=== PATIENT | female | born 1970 | race Caucasian/White ===

== ENCOUNTER 2017-05-17 04:21 | Emergency (ER) | payer OTHER ==
[~2017-05-17] VITALS: Ht 160 cm; Wt 89.0 kg
[~2017-05-17 04:21] MED LIST: ACID CONTROL150 MG PO; FOLIC ACID1 MG PO; MELATONIN5 M1 PO; NORCO 5/3251 TABLET PO; PRILOSEC40 MG PO; ZANTAC150 MG PO; ZOFRAN4 MG PO; ZOFRAN8 MG PO; ZOLOFT100 MG PO; ZOLOFT50 MG PO
[2017-05-17 04:25] VITALS: BP 150/95
[2017-05-17] MEDS ORDERED: FLONASE SENSIM9.9 ML BOTH NARES (04:44)
== END 2017-05-17 04:58 | disposition home or self-care (01) ==
LOC: EME 04:21
DX: J32.9 Chronic sinusitis, unspecified (principal); K21.9 Gastro-esophageal reflux disease without esophagitis
CPT/HCPCS: 99281; 99284; J1100

== ENCOUNTER 2018-03-29 08:54 | Day surgery (SDC) | payer BC ==
[~2018-03-29] VITALS: Ht 160 cm; Wt 90.7 kg
[~2018-03-29 08:54] MED LIST changes: +ALAVERT10 M1 PO; +FLONASE SENSIM9.9 ML BOTH NARES; +MAGNESIUM250 MG PO; +OMEPRAZOLE40 M1 PO; -PRILOSEC40 MG PO; +STOOL SOFTENER100 M1 PO; +VALIUM5 MG PO; +VITAMIN D33000 UNIT PO; -ZOLOFT50 MG PO; +[UNRECOGNIZED DRUG - CODE] PO
[2018-03-29 09:45] VITALS: BP 144/71
[2018-03-29] MEDS ORDERED: ENDOCET 5-3251 EACH PO (10:16)
[2018-03-29 13:53] VITALS: BP 143/69
[2018-03-29 15:00] VITALS: BP 137/48
[2018-03-29 16:12] VITALS: BP 129/76
== END 2018-03-29 16:10 | disposition home or self-care (01) ==
LOC: SDC 08:54
DX: N80.0 Endometriosis of uterus (principal); E66.9 Obesity, unspecified; Z68.35 Body mass index [BMI] 35.0-35.9, adult; K21.9 Gastro-esophageal reflux disease without esophagitis; K55.049 Acute infarction of large intestine, extent unspecified
CPT/HCPCS: 88307; J0330; J0690; J1100; J1170; J1885; J2250; J2405; J2710; J2795; J3010; J3475; J7120; J7643; Q0175